=== PATIENT | female | born 1960 | race Caucasian/White ===

== ENCOUNTER 2017-04-21 07:44 | Day surgery (SDC) | payer OTHER ==
[~2017-04-21] VITALS: Ht 162.6 cm; Wt 79.6 kg
[2017-04-21 09:50] VITALS: BP 123/74; PULSE 86; TEMP 97.8
[2017-04-21] MEDS ORDERED: NEXIUM 40MG40 MG PO (09:58)
[2017-04-21] MEDS ORDERED: PRINZIDE 12.5 M1 TA1 PO (09:58)
[2017-04-21] MEDS ORDERED: LISINOP/HCTZ TAB 20- (09:59)
[2017-04-21 10:00] VITALS: BP 114/73; PULSE 75
[2017-04-21 10:15] VITALS: BP 99/66; PULSE 70
[2017-04-21 10:30] VITALS: BP 101/67; PULSE 69
[2017-04-21 10:45] VITALS: BP 104/66; PULSE 67
[2017-04-21 12:20] VITALS: BP 101/69; PULSE 91; TEMP 97.6
== END 2017-04-21 11:00 | disposition home or self-care (01) ==
LOC: SDCO 07:44
DX: Z12.11 Encounter for screening for malignant neoplasm of colon (principal); K64.0 First degree hemorrhoids; K21.9 Gastro-esophageal reflux disease without esophagitis; K22.70 Barrett's esophagus without dysplasia; I10 Essential (primary) hypertension
CPT/HCPCS: OP; J2250; J3010

== ENCOUNTER → 2017-05-04 | Outpatient (CLI) | payer OTHER ==
[~2017-05-04] MED LIST: LISINOP/HCTZ TAB 20-; NEXIUM 40MG40 MG PO; PRINZIDE 12.5 M1 TA1 PO
== END ==
LOC: MC.RAD 07:20
DX: Z12.31 Encounter for screening mammogram for malignant neoplasm of breast (principal)

== ENCOUNTER → 2018-11-19 | Outpatient (CLI) | payer OTHER | LOC: MC.RAD 13:15 | DX: Z12.31 Encounter for screening mammogram for malignant neoplasm of breast (principal) ==

== ENCOUNTER → 2020-03-01 | Outpatient (CLI) | payer OTHER | LOC: MC.RAD 02-08 14:15 | DX: Z12.31 Encounter for screening mammogram for malignant neoplasm of breast (principal) ==

== ENCOUNTER → 2021-03-29 | Outpatient (CLI) | payer OTHER | LOC: MC.RAD 07:57 | DX: Z12.31 Encounter for screening mammogram for malignant neoplasm of breast (principal) ==

== ENCOUNTER → 2022-06-03 | Outpatient (CLI) | payer OTHER | LOC: MC.RAD 10:40 | DX: Z12.31 Encounter for screening mammogram for malignant neoplasm of breast (principal) ==

== ENCOUNTER → 2023-07-03 | Outpatient (CLI) | payer OTHER ==
[~2023-07-03] MED LIST changes: +AMOXICILLIN 8751 TAB PO; +COMPLETE MULTI1 TAB PO; +LIPITOR 10MG10 MG PO; +MOTRIN 600600 MG/TAB PO; +NORCO 325 MG-51 TAB PO; +PROTONIX 40MG T40 MG PO
== END ==
LOC: MC.RAD 07:00
DX: Z12.31 Encounter for screening mammogram for malignant neoplasm of breast (principal)